=== PATIENT | male | born 1995 | race Caucasian/White ===

== ENCOUNTER 2023-03-04 10:13 | Emergency (ER) | payer BC, SELFPAY ==
[2023-03-04 10:24] VITALS: BP 149/88; PULSE 92; RESP 16; TEMP 36.4; O2SAT 100
--- NOTE | 2023-03-04 10:26 | ECG_ITS ---
Measurements Intervals [place] Rate: 97 P: 72 [place]: 128 QRS: 51 QRSD: 90 T: 36 QT: 321 QTc: 409 Interpretive Statements SINUS RHYTHM NO PREVIOUS ECG AVAILABLE FOR COMPARISON Electronically Signed On 03-04-2023 11:23:06 CDT by Alma Mary M.D.
[2023-03-04 11:51] VITALS: BP 138/88; PULSE 94; RESP 17; O2SAT 100
[2023-03-04 11:59] LABS: Troponin I < 0.012 ng/mL (0.000-0.034)
--- NOTE | 2023-03-04 12:43 | ED.ARRPALP ---
HPI - Arrhythmia/Palpitations General Chief Complaint: Arrhythmia/Palpitations Stated Complaint: palpatation, left arm pain Time Seen by Provider: 03/04/23 11:50 History of Present Illness HPI narrative: 28-year-old male presents to the emergency room for evaluation of palpitations and anxiety. States he has been experiencing palpitations for over a week with some chest wall discomfort that radiates into his left arm. Patient states that he has not been sleeping very well over the past few weeks, has been working overtime, recently purchased a new house, and has a new baby in the home. States has been drinking an excessive amount of caffeine recently. Patient denies shortness of breath or difficulty breathing. Denies any syncopal or presyncopal events. Denies nausea or vomiting. Denies recreational drug Related Data Allergies Allergy/AdvReac Type Severity Reaction Status Date / Time No Known Allergies Allergy Verified 03/04/23 10:26 Review of Systems Review of Systems: CONSTITUTIONAL: Denies fever, chills, or sweats. EYES: Denies visual changes, redness, or discharge. ENT: Denies rhinorrhea, congestion, sore throat, or otalgia. CARDIOVASCULAR: Reports palpitations RESPIRATORY: Denies cough or dyspnea. GASTROINTESTINAL: Denies abdominal pain, nausea, vomiting, or diarrhea. GENITOURINARY: Denies dysuria or hematuria. SKIN: Denies rash or itching. MUSCULOSKELETAL: Denies back pain, joint pain, or myalgia. NEUROLOGIC: Denies headache, numbness, dizziness, or weakness. PSYCHIATRIC: Denies anxiety or depression. Exam Narrative: GENERAL: Well-appearing, well-nourished, no physical limitations, and in no acute distress. HEAD: Normocephalic, atraumatic. EYES: Conjunctivae normal, PERRLA and EOMI. CHEST: Clear to auscultation. No respiratory distress. No wheezes rales or rhonchi. No tenderness. HEART: Regular rate and rhythm. No murmur heard. Normal peripheral pulses. EXTREMITIES: Normal range of motion. No edema. No clubbing or cyanosis SKIN: Warm, dry, no rash. No noted wounds NEURO: No focal deficits. Alert and oriented x3. MAEW. CN's II-XI intact bilaterally, normal gait PSYCH: Cooperative. Normal mood and affect. Course Vital Signs Vital signs: Vital Signs Temperature 36.4 C L 03/04/23 10:24 Pulse Rate 92 03/04/23 10:24 Respiratory Rate 16 03/04/23 10:24 Blood Pressure 149/88 H 03/04/23 10:24 Pulse Oximetry 100 03/04/23 10:24 Temperature 36.4 C L 03/04/23 10:24 Pulse Rate 94 03/04/23 11:51 Respiratory Rate 17 03/04/23 11:51 Blood Pressure 138/88 03/04/23 11:51 Pulse Oximetry 100 03/04/23 11:51 MDM - Arrhythmia/Palpitations MDM Narrative Medical decision making narrative: 28-year-old male presented to the emergency room for evaluation of palpitations, increased life stressors. EKG showed no signs of ischemia. Single Trope was negative. After discussing patient's life stressors, palpitations are likely due to anxiety. Patient refused to follow-up with cardiology. Heart score was 0. Lab Data Labs: Lab Results 03/04/23 Range/Units 11:32 Troponin I < 0.012 (0.000-0.034) ng/mL Discharge Plan Discharge Clinical Impression: Palpitations, Anxiety Patient Disposition: Home, Self-Care Condition: Stable Instructions: Antibiotic Form, Heart Palpitations (ED), Anxiety (ED) Follow-up/Referrals: Marcio Mcmillan MD [Primary Care Provider] - Time of Disposition: 12:46 Quality HEART score for chest pain patients History: slightly suspicious ECG: normal Age: < or = to 45 years Risk factors: no risk factors known Troponin: < or = to 1x normal limit Heart score: 0
== END 2023-03-04 12:51 | disposition home or self-care (01) ==
PROVIDERS: Emergency Medicine; Emergency Provider Nurse Practitioner Family; PCP Family Medicine Adolescent Medicine
DX: R00.2 Palpitations (principal); F41.9 Anxiety disorder, unspecified
CPT/HCPCS: 36415; 84484; 93005; 99284